=== PATIENT | male | born 1980 | race Two or more races ===

== ENCOUNTER 2020-08-05 21:06 | Emergency (ER) | payer SELFPAY ==
[~2020-08-05] VITALS: Ht 170.2 cm; Wt 95.5 kg
[2020-08-05 21:16] VITALS: BP 134/86
[2020-08-05] MEDS: methylPREDNISolone SOD SUCC PF 125 MG/2 ML VIAL. IM ONE (21:42)
[2020-08-05] MEDS: KETOROLAC 60 MG/2 ML VIAL. IM ONE (21:42)
[2020-08-05] MEDS ORDERED: DICL50TA2 PO (22:00)
[2020-08-05] MEDS ORDERED: GABA300C18 PO (22:00)
[2020-08-05] MEDS ORDERED: METH4TAB2 PO (22:00)
[2020-08-05] MEDS ORDERED: CYCL10TA2 PO (22:00)
--- NOTE | 2020-08-05 22:01 | PHYS DOC ---
Past Medical History Past Medical History: No Pertinent History (MAXIME OLIVEIRA APRN) Past Surgical History: No Surgical History (MAXIME OLIVEIRA APRN) Smoking Status: Current Every Day Smoker Alcohol Use: Occasionally (MAXIME OLIVEIRA APRN) General Adult EDM: Chief Complaint: LOWER EXT PAIN HPI: HPI: Patient is a 39 year old male with no significant medical history presenting today complaining of moderate pain to the right low back radiating to the right lower extremity that has been going on for 4 weeks. Patient states symptoms are worse on certain movements especially laying on his back. He states he constantly has to move [id number] to improve on the symptoms. Denies any injuries. Denies any loss of bowel/bladder function. Denies anything specifically relieving the pain. Describes the pain as sharp and intermittent. He states he is always sciatic and would like injection in his back. Patient is [place]ani-speaking and interpretation is provided by the language line (MAXIME OLIVEIRA APRN) Review of Systems: Review of Systems: Constitutional: Denies fever or chills. [] GI: Denies abdominal pain, nausea, vomiting, bloody stools or diarrhea. [] : Denies dysuria. [] Musculoskeletal: Right low back pain radiating to the right lower extremity Integument: Denies rash. [] Neurologic: Denies headache, focal weakness or sensory changes. [] Psychiatric: Denies depression or anxiety. [] (MAXIME OLIVEIRA APRN) Heart Score: Risk Factors: Risk Factors: DM, Current or recent (<one month) smoker, HTN, HLP, family history of CAD, obesity. Risk Scores: Score 0 - 3: 2.5% MACE over next 6 weeks - Discharge Home Score 4 - 6: 20.3% MACE over next 6 weeks - Admit for Clinical Observation Score 7 - 10: 72.7% MACE over next 6 weeks - Early Invasive Strategies (MAXIME OLIVEIRA APRN) Current Medications: Current Medications Medications (Trade) Dose Ordered Sig/Patrick Start Time Stop Time Status Last Admin Dose Admin Ketorolac Tromethamine (Toradol Im) 60 mg 1X ONCE 08/05/20 21:45 08/05/20 21:46 DC 08/05/20 21:42 60 MG Methylprednisolone Sodium Succinate (SOLU-Medrol 125MG VIAL) 125 mg 1X ONCE 08/05/20 21:45 08/05/20 21:46 DC 08/05/20 21:42 125 MG (MAXIME OLIVEIRA APRN) Allergies: Allergies: Allergies Coded Allergies Type Severity Reaction Last Updated Verified No Known Drug Allergies 08/05/20 No (MAXIME OLIVEIRA APRN) Physical Exam: PE: Constitutional: Well developed, well nourished, no acute distress, non-toxic appearance. [] Abdomen: Bowel sounds normal, soft, no tenderness, no masses, no pulsatile masses. [] Skin: Warm, dry, no erythema, no rash. [] Back: Tenderness on the right SI joint, no midline lumbar spine tenderness, no CVA tenderness. Positive straight leg raise at approximately 30 degrees to the right lower extremity Extremities: No tenderness, no cyanosis, no clubbing, ROM intact, no edema. [] Neurologic: Alert and oriented X 3, normal motor function, normal sensory function, no focal deficits noted. [] Psychologic: Affect normal, judgement normal, mood normal. [] (MAXIME OLIVEIRA APRN) Current Patient Data: Vital Signs: Vital Signs Date Time Temp Pulse Resp B/P (MAP) Pulse Ox O2 Delivery O2 Flow Rate FiO2 08/05/20 21:16 98.4 88 18 134/86 (102) 98 Room Air 98.4 (MAXIME OLIVEIRA APRN) EKG: EKG: [] (MAXIME OLIVEIRA APRN) Radiology/Procedures: Radiology/Procedures: [] (MAXIME OLIVEIRA APRN) Course & Med Decision Making: Course & Med Decision Making Pertinent Labs and Imaging studies reviewed. (See chart for details) This is a 39-year-old male patient presenting to the ED today with sciatica. He has no cauda equina syndrome symptoms. He will be discharged to home with follow-up information with the PCP. (MAXIME OLIVEIRA APRN) Course & Med Decision Making I have reviewed the PA/MILLER APPRENTICE's note and Plan of Care. I was available for consultation as needed during the patient's visit in the emergency department. I agree with the clinical impression, plans and disposition. (PAUL COWART MD) Dragon Disclaimer: Dragon Disclaimer: This electronic medical record was generated, in whole or in part, using a voice recognition dictation system. (MUTUNGA,MAXIME [employer] DIV[employer] CAPTAIN) Departure Departure Impression: Primary Impression: Low back pain Qualified Codes: M54.41 - Lumbago with sciatica, right side Additional Impression: Sciatica, right side Disposition: 01 DC HOME SELF CARE/HOMELESS Condition: STABLE Referrals: NO PCP (PCP) You can follow-up with the provided doctor for back injections SHERON BURRELL MD Patient Instructions: Sciatica, [id number] Additional Instructions: You were seen for back pain with sciatica. Take the prescribed medications as ordered. Follow-up with your own doctor or the provided doctor in 1 to 2 weeks. Scripts Diclofenac Potassium (DICLOFENAC POTASSIUM) 50 Mg Tablet 1 TAB PO BID, #20 TAB 0 Refills Prov: MAXIME OLIVEIRA [employer] 08/05/20 Cyclobenzaprine Hcl (CYCLOBENZAPRINE HCL) 10 Mg Tablet 1 TAB PO TID, #30 TAB Prov: MAXIME OLIVEIRA [employer] 08/05/20 Gabapentin (GABAPENTIN ) 300 Mg Capsule 300 MG PO TID PRN for PAIN, #30 CAP Prov: MAXIME OLIVEIRA APRN 08/05/20 Methylprednisolone (MEDROL) 4 Mg Tab.ds.pk 1 PKG PO UD, #1 PKG Prov: MAXIME OLIVEIRA APRN 08/05/20 MAXIME OLIVEIRA APRN Aug 05, 2020 22:01 PAUL COWART MD Aug 05, 2020 22:02
== END 2020-08-05 22:15 | disposition home or self-care (01) ==
LOC: ER 21:06
DX: M54.41 Lumbago with sciatica, right side (principal); F17.200 Nicotine dependence, unspecified, uncomplicated
CPT/HCPCS: 96372; 99284; J1885; J2930